=== PATIENT | male | born 1945 | race Caucasian/White ===

== ENCOUNTER 2023-12-29 13:42 | Emergency (ER) | payer MEDICARE, OTHER, SELFPAY ==
[2023-12-29 13:45] VITALS: BP 106/58
--- NOTE | 2023-12-29 13:46 | ED.GENMED ---
ED Provider Triage
<Alisa Galvan PA-C - Last Filed: 12/29/23 13:51>
-
Patient seen by provider in Triage?: Seen in Triage
Attestation: A medical screening examination has been initiated by a qualified medical provider. Based on the assessment performed at this time, it has been determined that an emergent medical condition may exist and the patient has been informed
that further medical evaluation and possible additional diagnostic testing may be needed.
HPI: 78yoM here with recurrent daily fevers x several months. Tmax 101. Hx of suprapubic catheter and Parkinson's. Recently treated for UTI 2 weeks ago with a 1x dose of an antibiotic. Patient's neurologist concerned about aspiration pneumonia.
GENERAL: Alert , in no apparent distress
EYE: No visual abnormalities.
NECK: Trachea midline
ENT: No visible abnormalities.
LUNGS: No acute respiratory distress
NEUROLOGICAL: Alert and oriented
SKIN: Skin intact. No visible changes.
MUSCULOSKELETAL: Moving extremities normally
PSYCH: Normal and appropriate interaction.
This is a medical evaluation conducted in person to initiate diagnostic evaluation and provide initial therapeutics. Please see further documentation by the treating clinician.
CBC, CMP, and CXR ordered.
History of Present Illness
<Alisa Galvan PA-C - Last Filed: 12/29/23 13:51>
General
Chief Complaint: Male Genito-Urinary Symptoms
Time Seen by Provider: 12/29/23 16:49
<Johann Morton DO - Last Filed: 12/29/23 21:04>
General
Source: patient, records and spouse
Exam Limitations: clinical condition
Nursing documentation reviewed up to this point in time: agreed with
History of Present Illness
History of Present Illness:
Patient is a 78-year-old male with a history of a rapidly progressive Parkinson's over the past 3 years presents to the emergency department with his because of the neurologist was concerned about possible aspiration and wanted to get a chest
x-ray. According to the patient's he has been having fevers for 1 to 2 hours every night for the past month to 2 months. Patient becomes very hot and flushed and then it dissipates and he is fine. Occasionally it happens in the morning.
Patient has not had any nasal congestion, sore throat or cough. Patient's not been short of breath. Patient has not had any GI symptoms. Patient does have a suprapubic catheter because of urinary retention. Patient's neurologist is concerned
about him possibly aspirating I wanted to get a chest x-ray. Patient has really no complaints.
Past History
<Johann Morton DO - Last Filed: 12/29/23 21:04>
Past History
ED Past Medical History: Other (Parkinson's, urinary retention)
Social History
Tobacco: Former smoker
Review of Systems
<Johann Morton DO - Last Filed: 12/29/23 21:04>
Review of Systems
All Other Systems: ROS reviewed and negative except as documented in HPI and ROS
Constitutional: Reports fever and chills; Denies fatigue
EENT: Reports no symptoms
Respiratory: Reports no symptoms
Cardiac: Reports no symptoms
ABD/GI: Reports no symptoms
: Reports other (Indwelling James)
Musculoskeletal: Reports no symptoms
Skin: Reports no symptoms
Hematologic/Lymphatic: Reports no symptoms
Phy Exam
<Johann Morton DO - Last Filed: 12/29/23 21:04>
Physical Exam
Physical Exam:
Physical Exam
General: No apparent distress, alert and appropriate, well nourished, dry mucous membranes
HENT: Normocephalic, supple with no lymphadenopathy, no thyromegaly
Eyes: Clear sclera, conjuctiva without injection
Heart: Regular rhythm and rate. No S3, S4. No murmur. No NVD
Lungs: No respiratory distress, no stridor, lung sounds clear and equal bilaterally
Abdomen: Soft, nontender, no organomegaly, indwelling suprapubic catheter, BS good
Neuro: Alert and usual mental status, CN II - XII intact, no motor focality, significant cogwheeling and stiffness
Skin: no rash
Psychiatric: well kept. interactive and cooperative
Extremities: No edema, cyanosis, tenderness
Course
<Alisa aGlvan PA-C - Last Filed: 12/29/23 13:51>
Orders/Labs/Results
Orders:
Orders
12/29/23 13:50
CR Chest - 2 Views Urgent
Comment:
Reason For Exam: Fever
12/29/23 13:55
Complete Blood Count/With Diff Urgent
Comprehensive Metabolic Panel Urgent
12/29/23 18:47
Urinalysis Reflex To Culture Urgent
Date Specimen was Collected: 12/29/23
Time Specimen was Collected: 16:58
Urine Microscopic Reflex Cult Urgent
Urine Culture Urgent
DANE Source: U
Specimen Description:
Date Specimen was Collected: 12/29/23
Time Specimen was Collected: 16:58
12/29/23 20:57
Cefepime HCl [Maxipime] 2,000 mg IV NOW STA
Abnormal Lab Results
12/29/23 12/29/23
13:55 18:47
RBC 4.14 L 10^6/uL
(4.70-6.10)
MCV 96.6 H fL
(80.0-94.0)
MCH 33.3 H pg
(27.0-31.0)
Absolute Lymphs (auto) 1.1 L 10^3/uL
(1.2-3.4)
Lymphocytes % 14.7 L %
(20.5-51.1)
BUN 29 H mg/dl
(9-20)
Urine Ketones Trace A
(Negative)
Ur Occult Blood Reflex 2+ A
(Negative)
Urine Nitrite (Reflex) Positive A
(Negative)
Leukocyte Esterase Rfl 2+ A
(Negative)
Urine RBC 7-10 A /HPF
(0-2)
Urine WBC (Reflex) >100 A /HPF
(0-5)
Urine Bacteria (Reflex) Moderate A
(Negative)
12/29/23 13:55
12/29/23 13:55
Vital Signs
Initial and Last Documented VS:
Initial Vital Signs
Temp Pulse Resp BP Pulse Ox
98.4 F 69 16 106/58 94
12/29/23 13:45 12/29/23 13:45 12/29/23 13:45 12/29/23 13:45 12/29/23 13:45
Last Documented Vital Signs
Temp Pulse Resp BP Pulse Ox
98.4 F 68 15 134/72 97
12/29/23 13:45 12/29/23 18:45 12/29/23 18:45 12/29/23 18:00 12/29/23 18:00
<Johann Morton, DO - Last Filed: 12/29/23 21:04>
Orders/Labs/Results
Orders:
Orders
12/29/23 13:50
CR Chest - 2 Views Urgent
Comment:
Reason For Exam: Fever
12/29/23 13:55
Complete Blood Count/With Diff Urgent
Comprehensive Metabolic Panel Urgent
12/29/23 18:47
Urinalysis Reflex To Culture Urgent
Date Specimen was Collected: 12/29/23
Time Specimen was Collected: 16:58
Urine Microscopic Reflex Cult Urgent
Urine Culture Urgent
DANE Source: U
Specimen Description:
Date Specimen was Collected: 12/29/23
Time Specimen was Collected: 16:58
12/29/23 20:57
Cefepime HCl [Maxipime] 2,000 mg IV NOW STA
Abnormal Lab Results
12/29/23 12/29/23
13:55 18:47
RBC 4.14 L 10^6/uL
(4.70-6.10)
MCV 96.6 H fL
(80.0-94.0)
MCH 33.3 H pg
(27.0-31.0)
Absolute Lymphs (auto) 1.1 L 10^3/uL
(1.2-3.4)
Lymphocytes % 14.7 L %
(20.5-51.1)
BUN 29 H mg/dl
(9-20)
Urine Ketones Trace A
(Negative)
Ur Occult Blood Reflex 2+ A
(Negative)
Urine Nitrite (Reflex) Positive A
(Negative)
Leukocyte Esterase Rfl 2+ A
(Negative)
Urine RBC 7-10 A /HPF
(0-2)
Urine WBC (Reflex) >100 A /HPF
(0-5)
Urine Bacteria (Reflex) Moderate A
(Negative)
12/29/23 13:55
12/29/23 13:55
Vital Signs
Initial and Last Documented VS:
Initial Vital Signs
Temp Pulse Resp BP Pulse Ox
98.4 F 69 16 106/58 94
12/29/23 13:45 12/29/23 13:45 12/29/23 13:45 12/29/23 13:45 12/29/23 13:45
Last Documented Vital Signs
Temp Pulse Resp BP Pulse Ox
98.4 F 68 15 134/72 97
12/29/23 13:45 12/29/23 18:45 12/29/23 18:45 12/29/23 18:00 12/29/23 18:00
<Johann Morton DO - Last Filed: 12/29/23 21:04>
*Pulse Oximetry
Patient hypoxic: no
*EKG
Interpreted by ED Provider?: NA
*Termite Control Servicer Interpretation
Rate: Termite Control Servicer- N/A
*Critical Care Note
Total Time (30-74mins, 75-104mins- exclusive of procedures): Not Applicable
<Johann Morton DO - Last Filed: 12/29/23 21:04>
Update Note
Update Note:
Patient's urine is infected. Question whether the patient should be on suppression therapy or not however with the indwelling suprapubic tube is probably going to be a recurrent problem. Patient's white count is not elevated but he does have
nightly fevers. Patient will be given a dose of antibiotics and his urologist will be notified of the follow-up and plan
ED Attending Note
<Alisa Galvan PA-C - Last Filed: 12/29/23 13:51>
-
Portions of this chart may have been created with voice recognition software.� Occasional wrong word or��sound alike� substitutions may have occurred due to the inherent limitations of voice recognition software.
Discharge Plan
Departure
Patient Disposition: Home (Routine Discharge)
Date of Disposition: 12/29/23
Time of Disposition: 21:01
Patient with high blood pressure during this ER visit?: No
Condition: Fair
Covid-19: Not Applicable
Discharge Problem:
UTI (urinary tract infection) due to urinary indwelling catheter, Parkinson's disease
Instructions: Methenamine, Sodium Phos [place], Phenyl Salicylate, Methyl Blue, Hyoscyamine, Urinary tract infection - Discharge instructions
Prescriptions:
New
methenamine hippurate 1 gram tablet
1 g PO BID Qty: 30 0RF
Referrals:
Rajesh Saunders MD [Active] - Follow up in 2-3 days
Natalio Murillo MD, Resident [Family Provider] -
Interventions
Interventions:
*Risk Screen - Suicide Last Done: 12/29/23 13:49
*General Assessment Last Done: 12/29/23 18:55
*Neglect/Abuse Screening Last Done: 12/29/23 13:49
*ED COVID-19 Vaccine History Last Done: 12/29/23 13:49
ED-Male Genitourinary Assessment Last Done: 12/29/23 13:49
Discharge Date and Time
Print Language: YORUBA
[2023-12-29 14:00] LABS: % Basophils 0.5 % (0-2); % Eosinophils 3.9 % (0-6); % Immature Granulocytes 0.1 % (0-0.5); % Lymphocytes 14.7 % (20.5-51.1); % Monocytes 8.3 % (1.7-9.3); % Neutrophils 72.5 % (42.2-75.2); Absolute Eosinophils 0.3 10^3/uL (0-0.7); Absolute Lymphocytes 1.1 10^3/uL (1.2-3.4); Absolute Monocytes 0.6 10^3/uL (0.1-0.6); Absolute Neutrophils 5.4 10^3/uL (1.4-6.5); Hemoglobin 13.8 g/dL (13.0-18.0); Mean Corp Hgb Conc. 34.5 g/dL (33.0-37.0); Mean Corpuscular Hgb 33.3 pg (27.0-31.0); Mean Corpuscular Volume 96.6 fL (80.0-94.0); Nucleated Red Blood Cells % 0 % (-); Platelet Count 222 10^3/uL (130-400); Red Blood Cell Count 4.14 10^6/uL (4.70-6.10); Red Cell Dist. Width 13.1 % (11.5-14.5); White Blood Cell Count 7.5 10^3/uL (4.8-10.8)
[2023-12-29 14:24] LABS: AST (SGOT) 24 U/L (17-59); Albumin 4.2 g/dl (3.5-5.0); Alkaline Phosphatase 47 U/L (38-126); Blood Urea Nitrogen 29 mg/dl (9-20); Calcium 9.8 mg/dl (8.4-10.2); Carbon Dioxide 23 mmol/L (22-30); Chloride 106 mmol/L (98-107); Glucose 78 mg/dl (70-99); Potassium 4.5 mmol/L (3.5-5.1); Sodium 141 mmol/L (135-145); Total Bilirubin 0.8 mg/dl (0.2-1.3); Total Protein 6.9 g/dl (6.3-8.2); eGFR > 60.00
[2023-12-29 15:01] LABS: ALT (SGPT) < 10 U/L (0-50)
[2023-12-29 16:05] VITALS: BP 138/104
[2023-12-29 17:32] VITALS: BP 121/61
[2023-12-29 18:00] VITALS: BP 134/72
[2023-12-29 19:21] LABS: Urine Albumin Trace (Neg - Trace); Urine Bilirubin Negative (Negative); Urine Character Slightly Cloudy (Clear); Urine Color Yellow; Urine Glucose Negative (Negative); Urine Ketone Trace (Negative); Urine Leukocyte 2+ (Negative); Urine Nitrite Positive (Negative); Urine Occult Blood 2+ (Negative); Urine Urobilinogen 1+ (Neg - 1+)
[2023-12-29 20:11] LABS: Urine Bacteria Moderate (Negative); Urine White Cell >100 /HPF (0-5)
[2023-12-29] MEDS: HIPREX 1 GRAM PO (21:27)
== END 2023-12-29 21:51 | disposition home or self-care (01) ==
LOC: EMR 13:42
PROVIDERS: Physician Assistant; EMERGENCY PHYSICIAN Emergency Medicine; FAMILY PHYSICIAN Student in an Organized Health Care Education/Training Program
DX: T83.511A Infection and inflammatory reaction due to indwelling urethral catheter, initial encounter (principal); N39.0 Urinary tract infection, site not specified; Y84.6 Urinary catheterization as the cause of abnormal reaction of the patient, or of later complication, without mention of misadventure at the time of the procedure; Y73.1 Therapeutic (nonsurgical) and rehabilitative gastroenterology and urology devices associated with adverse incidents; G20.A1 Parkinson's disease without dyskinesia, without mention of fluctuations; Z87.440 Personal history of urinary (tract) infections; Z87.891 Personal history of nicotine dependence
CPT/HCPCS: 99284; 96374; 71046; 80053; 81003; 81015; 85025; 87086